=== PATIENT | female | born 1960 | race Caucasian/White ===

== ENCOUNTER 2023-04-21 02:18 | Observation (INO) | payer OTHER ==
[~2023-04-21] VITALS: Ht 165.1 cm; Wt 76.2 kg
[~2023-04-21 02:18] MED LIST: ALBU90OI6 INH; ALBUTEROL; CHOL10002; CLIN300 PO; CRUTCH4 USE; DIAZ5; DOCU100; DOCU100 PO; DULO30; DULO60 PO; FLUO20; FLUSAL2505 IH; FURO40; HYDACE5 PO; IBUP800; IBUP800 PO; LORA1 PO; METH10; METH10 PO; MULVIT; Micro-K10 MEQ; OMEG1CAP30 PO; OMEP20ER PO; OXYB5; OXYB5 PO; OXYC5 PO; PENVK500 PO; POTCHL20ER; PRAM.5 PO; PRAV40 PO; PROM25; PROM25 PO; RANI150; RANI150 PO; RXHYDACE PO; STOOL SOFTENER100 MG
[2023-04-21 03:00] LABS: BASOPHILS ABSOLUTE AUTO 0.08 K/mm3 (0.00-0.23); BASOPHILS PERCENT AUTO 1 % (0-2); EOSINOPHILS ABSOLUTE AUTO 0.45 K/mm3 (0.00-0.68); EOSINOPHILS PERCENT AUTO 3 % (0-6); Hematocrit 39.5 % (33.0-51.0); Hemoglobin 13.5 g/dL (11.5-16.0); IMMATURE GRAN ABSOLUTE AUTO 0.05 K/mm3 (0.00-0.10); IMMATURE GRAN PERCENT AUTO 0 % (0-1); LYMPHOCYTES ABSOLUTE AUTO 2.87 K/mm3 (0.84-5.20); LYMPHOCYTES PERCENT AUTO 22 % (21-46); MONOCYTES ABSOLUTE AUTO 0.89 K/mm3 (0.16-1.47); MONOCYTES PERCENT AUTO 7 % (4-13); Mean Corpuscular HGB 31.8 pg (26.0-34.0); Mean Corpuscular HGB Conc 34.2 g/dL (31.5-36.5); Mean Corpuscular Volume 93 fL (80-100); Mean Platelet Volume 9.5 fL (9.1-12.4); NEUTROPHILS ABSOLUTE AUTO 8.91 K/mm3 (1.96-9.15); NEUTROPHILS PERCENT AUTO 67 % (41-73); Platelet Count 259 K/mm3 (150-400); RDW Coefficient Variation 12.5 % (11.7-14.2); RDW Standard Deviation 43.5 fL (35.1-46.3); Red Blood Cell Count 4.24 M/mm3 (3.80-5.20); White Blood Cell Count 13.25 K/mm3 (4.00-11.30)
[2023-04-21 03:18] LABS: Albumin, Blood 3.5 g/dL (3.4-5.0); Albumin/Globulin Ratio 1.1 (0.8-1.8); Bilirubin, Total 0.4 mg/dL (0.1-1.0); Bun/Creatinine Ratio 12.9 (12.0-20.0); Calcium, Blood 9.1 mg/dL (8.5-10.1); Creatinine, Blood 0.62 mg/dL (0.40-1.00); Globulin, Blood 3.3 g/dL (2.2-4.0); Potassium, Blood 3.5 mmol/L (3.5-5.5); Total Protein, Blood 6.8 g/dL (6.4-8.2)
--- NOTE | 2023-04-21 06:30 | NUR ---
RECEIVED THIS AM FROM ER TO RM 208.PT UP IN ROOM TO CHANGE TO GOWN.PT IN NO DISTRESS.
[2023-04-21 06:42] VITALS: BP 113/70
[2023-04-21 07:23] VITALS: BP 106/68
--- NOTE | 2023-04-21 08:29 | NUR ---
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
--- NOTE | 2023-04-21 08:29 | NUR ---
DENIES ANY PAIN OR NAUSEA AT THIS TIME, PT JUST WANTS TO REST FOR NOW, CONT. TO MONITOR FOR ANY CHANGES.
[2023-04-21 15:21] VITALS: BP 92/53
--- NOTE | 2023-04-21 17:36 | NUR ---
SUMMARY RUQ FOR CHOLECYSTITIS, DILAUDID AND NORCO FOR PAIN CONTROL, DENIES ANY NAUSEA, INDEPENDENT IN ROOM, NPO EARLIER TODAY, CLEAR LIQUIDS STARTED EARLIER TODAY, TOLERATING WELL, REPORTS HAVING NO APPETITE, PLAN FOR OR TOMORROW W/ DR. FINNEGAN PER DR. DAMON, NO ACUTE CHANGES THIS SHIFT.
[2023-04-21 19:25] VITALS: BP 116/62
[2023-04-22] VITALS (16 sets, daily range): BP systolic 113–152; BP diastolic 60–88
--- NOTE | 2023-04-22 07:50 | NUR ---
OUT TO OR PER NICHOLAS.
--- NOTE | 2023-04-22 10:07 | NUR ---
RETURN FROM PACU TO ROOM 208 PT BROUGHT BACK TO HER ROOM FROM PACU C/O NAUSEA, MEDICATED PER EMAR, LAP SITES C/D/I X4, PAIN TOLERABLE AT THIS TIME, EDUCATED ON PLAN OF CARE POST OP AND POTENTIAL DC LATER TODAY.
[2023-04-22] MEDS ORDERED: HYDR1TAB94 PO (15:20)
--- NOTE | 2023-04-22 16:29 | NUR ---
DISCHARGE SUMMARY POD0 LAP JEFFERY, Coyd/OX4, VSS, TOLERATING PO, PAIN WELL TOLERATED, INDEPENDENT IN THE ROOM. DISCUSSED DISCHARGE INFORMATION WITH HER INCLUDING HOME CARE, MEDICATIONS, AND FOLLOW UP APPOINTMENTS. IV ACCESS REMVOED, PT HAD NO QUESTIONS AT TIME OF DISCHARGE. CHAU[employer]UR [employer]ORBUS RETURNED TO HER SHE HAD SURRENDERED IT PREVIOUSLY AND WAS ASKED NOT TO USE IT UNTIL SHE IS OFF HOSPITAL PROPERTY DUE TO NO SMOKING FACILITY.
[2023-04-24 12:02] LABS: Performing Lab SYMBIODX; Test Name TISSUE BIOPSY
[2023-05-01 09:13] LABS: Result SEE SEPARATE REPORT
== END 2023-04-22 08:08 | disposition home or self-care (01) ==
LOC: ER 02:18 → SURS 02:19
PROVIDERS: Emergency Medicine; Pathology Clinical Pathology/Laboratory Medicine; Surgery; ADMIT Surgery
PROC: 0FT44ZZ Resection of Gallbladder, Percutaneous Endoscopic Approach (ICD-10-PCS; principal; 2023-04-22 08:00)
DX: K80.00 Calculus of gallbladder with acute cholecystitis without obstruction (principal); K83.8 Other specified diseases of biliary tract; F17.200 Nicotine dependence, unspecified, uncomplicated
CPT/HCPCS: 74177; 74181; 80053; 83690; 85025; 88304; 88313; 88341; 88342; 96365-59; 96375; 96376; 99285-25; A9270; G0378; J1100; J1170; J1885; J2250; J2405; J2543; J2704; J2765; J2795; J3010; J7030; J7120; Q9967